=== PATIENT | female | born 2000 | race Caucasian/White ===

== ENCOUNTER 2025-03-25 14:56 | Emergency (ER) | payer MEDICAID ==
[~2025-03-25] VITALS: Ht 170.2 cm; Wt 114.0 kg
[2025-03-25 15:50] VITALS: O2SAT 98
[2025-03-25 15:51] VITALS: BP 142/78; PULSE 66; RESP 18; TEMP 36.8; O2SAT 99
[2025-03-25 16:52] LABS: CLARITY URINE CLEAR (CLEAR); COLOR URINE DARK YELLOW (YELLOW); GLUCOSE URINE NEGATIVE (NEGATIVE); KETONES URINE TRACE (NEGATIVE); LEUKOCYTE ESTERASE URINE TRACE (NEGATIVE); NITRITE URINE NEGATIVE (NEGATIVE); OCCULT BLOOD URINE 2+ (NEGATIVE); PH URINE 7.5 (4.5-8.0); PROTEIN URINE TRACE (NEGATIVE); SPECIFIC GRAVITY URINE 1.029 (1.005-1.030); UROBILINOGEN URINE 1.0 E.U./dL (0.2-1.0)
[2025-03-25 17:03] LABS: BACTERIA URINE TRACE; SQUAMOUS EPITHELIAL CELL URINE FEW /lpf (RARE/1+); WBC URINE 0-2 /hpf (0-2)
[2025-03-25] MEDS: ONDANSETRON 4MG ODT PO ONE (17:38)
[2025-03-25] MEDS: METOCLOPRAMIDE HCL 5MG TABLET PO NR (19:01)
[2025-03-25 19:38] LABS: BASOPHILS % 0.6 % (0.0-2.0); EOSINOPHILS % 1.1 % (0.0-5.0); HEMATOCRIT. 36.7 % (36.0-48.0); HEMOGLOBIN. 13.0 g/dL (12.0-16.0); LYMPHOCYTES % 26.1 % (20.0-50.0); MEAN PLATELET VOLUME 9.2 fl (7.4-10.4); MONOCYTES % 6.0 % (2.0-8.0); NEUTROPHILS % 66.2 % (40.0-76.0); PLATELET 311 x1000/uL (130-400); RED BLOOD CELL COUNT 4.47 mill/uL (4.2-5.4); RED CELL DISTRIBUTION WIDTH 16.0 % (11.6-14.6)
[2025-03-25 19:50] LABS: CREATININE 0.5 mg/dL (0.6-1.0)
[2025-03-25 19:51] LABS: UREA NITROGEN BLOOD 11 mg/dL (9-23)
[2025-03-25 19:52] LABS: ASPARTATE AMINOTRANSFERASE 16 IU/L (<34)
[2025-03-25 19:53] LABS: BILIRUBIN DIRECT 0.5 mg/dL (<=3.0); BILIRUBIN TOTAL 1.4 mg/dL (0.1-1.0); PROTEIN TOTAL 7.7 g/dL (6.0-8.3)
[2025-03-25] MEDS ORDERED: ONDA-239 PO (20:11)
== END 2025-03-25 20:41 | disposition home or self-care (01) ==
LOC: ER 14:56
DX: B34.9 Viral infection, unspecified (principal); R11.2 Nausea with vomiting, unspecified; R19.7 Diarrhea, unspecified; Z79.899 Other long term (current) drug therapy
CPT/HCPCS: 99284; 74176; 80076; 80048; 81003; 81025; 83690; 85025; 36415; J8597; Q0162